=== PATIENT | female | born 1990 ===

== ENCOUNTER 2019-08-26 20:47 | Emergency (ER) | payer SELFPAY ==
[2019-08-26] MEDS ORDERED: diphenhydrAMINE 50 MG Cap PO ONE (21:04)
[2019-08-26] MEDS ORDERED: methylPREDNISolone Sodium Succinate 125 MG/2 ML SDV IM ONE (21:04)
[2019-08-26] MEDS ORDERED: Loratadine/Pseudoephedrine 5-120 MG Tab.ER PO STA (21:05)
[2019-08-26] MEDS ORDERED: Montelukast 10 MG Tab PO ONE (21:09)
--- NOTE | 2019-08-26 21:33 | EDM.PDOC ---
ED HPI GENERAL MEDICAL PROBLEM - General Chief Complaint: General Stated Complaint: ALLERGIC REACTION Time Seen by Provider: 08/26/19 20:55 Source of Information: Reports: Patient History Limitations: Reports: No Limitations - History of Present Illness INITIAL COMMENTS - FREE TEXT/NARRATIVE: HISTORY AND PHYSICAL: History of present illness: Patient is a 28-year-old female who presents to the emergency room with complaints of allergy symptoms. [place] and has noticed allergy symptoms when she goes outside. Today symptoms were worse than usual. Typically she will have a dry scratchy throat, runny nose, sinus congestion/pressure, watery and irritated eyes. She has been trying multiple modalities at home (benadryl, allergy meds, Tylenol, eye drops) without much relief. Patient denies any fever, chills, headache, change in vision, syncope or near syncope. Denies any chest pain, back pain, wheezing, shortness of breath or cough. Denies any abdominal pain, nausea, vomiting, diarrhea, constipation or dysuria. Denies any chance of . Has not noted any blood in urine or stool. Patient has been eating and drinking appropriately. Review of systems: As per history of present illness and below otherwise all systems reviewed and negative. Past medical history: As per history of present illness and as reviewed below otherwise noncontributory. Surgical history: As per history of present illness and as reviewed below otherwise noncontributory. Social history: See social history for further information Family history: As per history of present illness and as reviewed below otherwise noncontributory. Physical exam: General: Well-developed and well-nourished 28-year-old female. Alert and oriented. Nontoxic-appearing and in no acute distress. HEENT: Atraumatic, normocephalic, pupils equal and reactive bilaterally, negative for conjunctival pallor or scleral icterus, bilateral scleral injection and watery discharge, mucous membranes moist, TMs normal bilaterally, throat clear, neck supple, nontender, trachea midline. No drooling or trismus noted. No meningeal signs. No hot potato voice noted. Lungs: Clear to auscultation, breath sounds equal bilaterally, chest nontender. Heart: S1S2, regular rate and rhythm without overt murmur Abdomen: Soft, nondistended, nontender. Negative for masses or hepatosp lenomegaly. Negative for costovertebral tenderness. Skin: Intact, warm, dry. No lesions or rashes noted. Extremities: Atraumatic, moves all extremities per self without difficulty or deficits, negative for cords or calf pain. Neurovascular unremarkable. Neuro: Awake, alert, oriented. Cranial nerves II through XII unremarkable. Cerebellum unremarkable. Motor and sensory unremarkable throughout. Exam nonfocal. Notes: Took Benadryl prior to arrival. We discussed signs and symptoms that would prompt her to return to the emergency room. I would like her to establish care with a primary care provider here for reevaluation in the next week. Supportive care measures were reviewed and discussed. Voices understanding and is agreeable to plan of care. Denies any further questions or concerns at this time. Diagnostics: None Therapeutics: Solu-Medrol, Singulair Prescription: [place], Singulair Impression: Seasonal allergies Conjunctivitis, allergy Plan: 1. Please take the Singulair as directed, 1 tab every night before bed. Further refills need to be provided by a primary care provider. 2. [place] eye drop as directed - or ANY antihistamine eyedrop keenly during allergy season. You can continue taking Benadryl, they do have the non-drowsy formula, take routinely as needed. 3. I would like you to follow-up with her primary care provider, not only for Singulair refill for reevaluation of your symptoms. 4. Return to the emergency room as needed and as discussed. Definitive disposition and diagnosis as appropriate pending reevaluation and review of above. Duration: Week(s): no pain Pain Score (Numeric/FACES): 0 - Related Data Allergies Allergy/AdvReac Type Severity Reaction Status Date / Time acetaminophen [From [place]] Allergy Anxiety Verified 08/26/19 20:54 hydrocodone [From [place]] Allergy Anxiety Verified 08/26/19 20:54 Home Meds: Home Meds . 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 ED EXAM, GENERAL - Physical Exam Exam: See Below (See dictation) Course - Vital Signs Last Recorded V/S: Last Vital Signs Temp 96.7 F L 08/26/19 20:56 Pulse 97 08/26/19 20:56 Resp 18 08/26/19 20:56 BP 136/95 H 08/26/19 20:56 Pulse Ox 96 08/26/19 20:56 - Orders/Labs/Meds Meds: Medications Discontinued Medications Generic Name Dose Route Start Last Admin Trade Name Hailee PRN Reason Stop Dose Admin Diphenhydramine HCl 50 mg 08/26/19 21:04 Benadryl PO 08/26/19 21:05 ONETIME ONE Loratadine/Pseudoephedrine Sulfate 1 tab 08/26/19 21:05 Claritin-D 12 Hour PO 08/26/19 21:06 NOW STA Methylprednisolone Sodium Succinate 125 mg 08/26/19 21:04 08/26/19 21:22 Solu-Medrol IM 08/26/19 21:05 125 mg ONETIME ONE Administration Montelukast Sodium 10 mg 08/26/19 21:09 08/26/19 21:39 Singulair PO 08/26/19 21:10 10 mg ONETIME ONE Administration Departure - Departure Time of Disposition: 21:33 Disposition: Home, Self-Care 01 Clinical Impression: Seasonal allergic conjunctivitis, Seasonal allergies - Discharge Information Instructions: Allergic Conjunctivitis, Adult, [id number]-Typy Referrals: PCP,None [Primary Care Provider] - Forms: ED Department Discharge Additional Instructions: The following information is given to patients seen in the emergency department who are being discharged to home. This information is to outline your options for follow-up care. We provide all patients seen in our emergency department with a follow-up referral. The need for follow-up, as well as the timing and circumstances, are variable depending upon the specifics of your emergency department visit. If you don't have a primary care physician on staff, we will provide you with a referral. We always advise you to contact your personal physician following an emergency department visit to inform them of the circumstance of the visit and for follow-up with them and/or the need for any referrals to a consulting specialist. The emergency department will also refer you to a specialist when appropriate. This referral assures that you have the opportunity for follow-up care with a specialist. All of these measure are taken in an effort to provide you with optimal care, which includes your follow-up. Under all circumstances we always encourage you to contact your private physician who remains a resource for coordinating your care. When calling for follow-up care, please make the office aware that this follow-up is from your recent emergency room visit. If for any reason you are refused follow-up, please contact the [facility] Emergency Department at and asked to speak to the emergency department charge nurse. [facility] [address] [place] [address] [place] [address] 1. Please take the Singulair as directed, 1 tab every night before bed. Further refills need to be provided by a primary care provider. 2. [place] eye drop as directed - or ANY antihistamine eyedrop keenly during allergy season. You can continue taking Benadryl, they do have the non-drowsy formula, take routinely as needed. 3. I would like you to follow-up with her primary care provider, not only for Singulair refill for reevaluation of your symptoms. 4. Return to the emergency room as needed and as discussed. Sepsis Event Note (ED) - Evaluation Sepsis Screening Result: No Definite Risk - Focused Exam Vital Signs: Vital Signs Temp Pulse Resp BP Pulse Ox 08/26/19 20:56 96.7 F L 97 18 136/95 H 96
== END 2019-08-26 21:53 | disposition home or self-care (01) ==
LOC: MW.ED 20:47
DX: J30.2 Other seasonal allergic rhinitis (principal); H10.13 Acute atopic conjunctivitis, bilateral; Z88.6 Allergy status to analgesic agent; Z88.5 Allergy status to narcotic agent
CPT/HCPCS: 96372; 99283; A9270; J2930; 99282

== ENCOUNTER 2020-08-16 19:02 | Observation (INO) | payer BC | END 2020-08-16 20:00 | disposition home or self-care (01) | LOC: MW.OBCHECK 19:02 → MW.OB 19:06 | PROVIDERS: ADMIT Obstetrics & Gynecology Obstetrics; ATTEND Obstetrics & Gynecology Obstetrics | DX: O36.8390 Maternal care for abnormalities of the fetal heart rate or rhythm, unspecified trimester, not applicable or unspecified (principal) | CPT/HCPCS: 59025; 81003; G0378 ==

== ENCOUNTER 2020-08-30 00:13 | Inpatient (IN) | payer BC ==
[2020-08-30] MEDS ORDERED: Misoprostol 200 MCG Tab PO PRN (00:15)
[2020-08-30] MEDS ORDERED: Sodium Chloride 0.9% 10 ML SDV IV PRN (00:15)
[2020-08-30] MEDS ORDERED: Butorphanol 1 MG/ML SDV IVPUSH PRN (00:15)
[2020-08-30] MEDS ORDERED: Oxytocin/0.9 % Sodium Chloride 30 UNIT/500 ML BAG IV SCH ×2 (00:15→00:30)
[2020-08-30] MEDS ORDERED: Lidocaine 1% 50 ML MDV INJECT PRN (00:15)
[2020-08-30] MEDS ORDERED: Sodium Chloride 0.9% 2.5 ML Syringe FLUSH PRN (00:15)
[2020-08-30] MEDS ORDERED: Sodium Chloride 0.9% 10 ML Syringe FLUSH PRN (00:15)
[2020-08-30] MEDS ORDERED: Tranexamic Acid 1,000 MG in Sodium Chloride 0.9% 100 ML IV PRN (00:15)
[2020-08-30] MEDS ORDERED: Water For Irrigation,Sterile 1,000 ML Container IRR PRN (00:15)
[2020-08-30] MEDS ORDERED: Carboprost Tromethamine 250 MCG/1 ML Amp IM PRN (00:15)
[2020-08-30] MEDS ORDERED: Methylergonovine 0.2 MG/1 ML Amp IM PRN (00:15)
[2020-08-30] MEDS ORDERED: Nalbuphine 10 MG/1 ML Vial IVPUSH PRN (00:15)
[2020-08-30] MEDS ORDERED: Terbutaline 1 MG/ML SDV SUBCUT PRN (00:22)
[2020-08-30] MEDS ORDERED: Misoprostol 25 MCG (1/4 of 100 MCG) Tab VAG PRN (00:22)
[2020-08-30] MEDS ORDERED: Promethazine 25 MG/ML SDV IM PRN (00:30)
[2020-08-30] MEDS ORDERED: Sodium Chloride 0.9% 100 ML ONE (01:21)
[2020-08-30] MEDS ORDERED: Ampicillin 2 GM Vial ONE (01:21)
[2020-08-30] MEDS: Lactated Ringers 1,000 ML IV SCH ×3 (01:37→12:31)
[2020-08-30] MEDS: Misoprostol 25 MCG (1/4 of 100 MCG) Tab VAG PRN ×3 (01:49→10:20)
[2020-08-30] MEDS: Misoprostol 25 MCG (1/4 of 100 MCG) Tab PO SCH ×4 (01:49→19:25)
[2020-08-30] MEDS ORDERED: Ampicillin 2 GM in Sodium Chloride 0.9% 100 ML IV ONE (02:00)
[2020-08-30] MEDS: Ampicillin 1 GM in Sodium Chloride 0.9% 50 ML IV SCH ×3 (05:54→13:50)
[2020-08-30] MEDS ORDERED: Bupivacaine 0.25% 10 ML SDV ONE (11:40)
[2020-08-30] MEDS ORDERED: Ropivacaine HCl/PF 200 ML ONE (11:40)
--- NOTE | 2020-08-30 12:15 | PCM.PREANE ---
Preanesthetic Assessment - Anesthesia/Transfusion/Family Hx Anesthesia History: Prior Anesthesia Without Reaction Family History of Anesthesia Reaction: No Transfusion History: No Prior Transfusion(s) - Review of Systems General: No Symptoms Pulmonary: No Symptoms Cardiovascular: No Symptoms Gastrointestinal: No Symptoms Neurological: No Symptoms Other: Reports: None - Physical Assessment NPO Status Date: 08/30/20 NPO Status Time: 00:00 Height: 5 ft 4 in Weight: 208 lb ASA Class: 2 Mental Status: Alert & Oriented x3 Airway Class: Mallampati = 2 Dentition: Reports: Normal Dentition ROM/Head Extension: Full Lungs: Clear to Auscultation, Normal Respiratory Effort Cardiovascular: Regular Rate, Regular Rhythm - Lab Values: Laboratory Last Values WBC 9.66 K/uL (4.0-11.0) 08/30/20 00:49 RBC 4.83 M/uL (4.30-5.90) 08/30/20 00:49 Hgb 13.6 g/dL (12.0-16.0) 08/30/20 00:49 Hct 40.8 % (36.0-46.0) 08/30/20 00:49 MCV 84.5 fL (80.0-98.0) 06 00:49 MCH 28.2 pg (27.0-32.0) 08/30/20 00:49 MCHC 33.3 g/dL (31.0-37.0) 06 00:49 RDW Std Deviation 43.3 fl (28.0-62.0) 08/30/20 00:49 RDW Coeff of Jackeline 14 % (11.0-15.0) 08/30/20 00:49 Plt Count 245 K/uL (150-400) 08/30/20 00:49 MPV 10.30 fL (7.40-12.00) 08/30/20 00:49 SARS-CoV-2 RNA (NANCI) NEGATIVE (NEGATIVE) 08/30/20 00:53 Blood Type B NEGATIVE 08/30/20 00:49 Antibody Screen NEGATIVE 08/30/20 00:49 - Allergies Allergies/Adverse Reactions: Allergies Allergy/AdvReac Type Severity Reaction Status Date / Time acetaminophen [From [place]] Allergy Anxiety Verified 08/30/20 00:15 hydrocodone [From [place]] Allergy Anxiety Verified 08/30/20 00:15 - Blood Blood Available: Yes Product(s) Available: PRBC - Anesthesia Plan Pre-Op Medication Ordered: None - Acknowledgements Anesthesia Type Planned: Epidural Pt an Appropriate Candidate for the Planned Anesthesia: Yes Alternatives and Risks of Anesthesia Discussed w Pt/Guardian: Yes Pt/Guardian Understands and Agrees with Anesthesia Plan: Yes PreAnesthesia Questionnaire - Past Health History Medical/Surgical History: Denies Medical/Surgical History HEENT History: Reports: None Cardiovascular History: Reports: None Respiratory History: Reports: None Gastrointestinal History: Reports: None Genitourinary History: Reports: None 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 [No Known Home Meds] 08/26/19 [History] - CURRENT (IN HOUSE) MEDS Current Meds: Current Medications Butorphanol Tartrate (Butorphanol 1 Mg/Ml Sdv) 1 mg IVPUSH Q1H PRN PRN Reason: Pain (severe 7-10) Carboprost Tromethamine (Carboprost Tromethamine 250 Mcg/1 Ml Amp) 250 mcg IM ASDIRECTED PRN PRN Reason: Post Hemorrhage Oxytocin/Sodium Chloride (Oxytocin 30 Unit/500 Ml-Ns) 30 unit in 500 mls @ 500 mls/hr IV TITRATE STEFAN Tranexamic Acid 1,000 mg/ (Sodium Chloride) 110 mls @ 660 mls/hr IV ONETIME PRN PRN Reason: Bleeding Lactated Ringer's (Ringers, Lactated) 1,000 mls @ 150 mls/hr IV ASDIRECTED STEFAN Last Infusion: 08/30/20 11:30 Dose: 999 mls/hr Documented by: Oxytocin/Sodium Chloride (Oxytocin 30 Unit/500 Ml-Ns) 30 unit in 500 mls @ 2 mls/hr IV TITRATE STEFAN; Protocol Ampicillin Sodium 1 gm/ Sodium (Chloride) 50 mls @ 100 mls/hr IV Q4H STEFAN Last Admin: 08/30/20 10:18 Dose: 100 mls/hr Documented by: Lidocaine HCl (Lidocaine 1% 50 Ml Mdv) 50 ml INJECT ONETIME PRN PRN Reason: Laceration repair Methylergonovine Maleate (Methylergonovine 0.2 Mg/1 Ml Amp) 0.2 mg IM ASDIRECTED PRN PRN Reason: Post Hemorrhage Misoprostol (Misoprostol 200 Mcg Tab) 200 mcg PO ONETIME PRN PRN Reason: Post Hemorrhage Misoprostol (Misoprostol 25 Mcg (1/4 Of 100 Mcg) Tab) 25 mcg VAG ONETIME PRN PRN Reason: Cervical Ripening Misoprostol (Misoprostol 25 Mcg (1/4 Of 100 Mcg) Tab) 25 mcg VAG Q4H PRN PRN Reason: Cervical Ripening Last Admin: 08/30/20 10:20 Dose: 25 mcg Documented by: Misoprostol (Misoprostol 25 Mcg (1/4 Of 100 Mcg) Tab) 25 mcg PO Q4H STEFAN Last Admin: 08/30/20 10:19 Dose: 25 mcg Documented by: Nalbuphine HCl (Nalbuphine 10 Mg/1 Ml Vial) 10 mg IVPUSH Q1H PRN PRN Reason: Pain (severe 7-10) Promethazine HCl (Promethazine 25 Mg/Ml Sdv) 25 mg IM Q1H PRN PRN Reason: Pain (moderate 4-6) Sodium Chloride (Sodium Chloride 0.9% 10 Ml Syringe) 10 ml FLUSH ASDIRECTED PRN PRN Reason: Keep Vein Open Sodium Chloride (Sodium Chloride 0.9% 2.5 Ml Syringe) 2.5 ml FLUSH ASDIRECTED PRN PRN Reason: Keep Vein Open Sodium Chloride (Sodium Chloride 0.9% 10 Ml Sdv) 10 ml IV ASDIRECTED PRN PRN Reason: IV Use Sterile Water (Water For Irrigation,Sterile 1,000 Ml Container) 1,000 ml IRR ASDIRECTED PRN PRN Reason: delivery Terbutaline Sulfate (Terbutaline 1 Mg/Ml Sdv) 0.25 mg SUBCUT ASDIRECTED PRN PRN Reason: Tacysystole Discontinued Medications Ampicillin Sodium (Ampicillin 2 Gm Vial) Confirm Administered Dose 2 gm .ROUTE .STK-MED ONE Stop: 08/30/20 01:22 Last Admin: 08/30/20 01:39 Dose: 2 gm Documented by: Bupivacaine HCl (Bupivacaine 0.25% 10 Ml Sdv) Confirm Administered Dose 10 ml .ROUTE .STK-MED ONE Stop: 08/30/20 11:41 Ampicillin Sodium 2 gm/ Sodium (Chloride) 100 mls @ 200 mls/hr IV ONETIME ONE Stop: 08/30/20 02:29 Last Admin: 08/30/20 02:13 Dose: Not Given Documented by: Sodium Chloride (Normal Saline) Confirm Administered Dose 100 mls @ as directed .ROUTE .STK-MED ONE Stop: 08/30/20 01:22 Last Admin: 08/30/20 01:39 Dose: 200 mls/hr Documented by: Ropivacaine (Naropin 0.2%) Confirm Administered Dose 200 mls @ as directed .ROUTE .ST-MED ONE Stop: 08/30/20 11:41 - Pre-Procedure Checklist Attending Provider Aware: Yes Chart Reviewed: Yes Consent Signed: Yes Labs Reviewed: Yes VS/FHR Reviewed: Yes Patient Identification Confirmation Method: Reports: Verbal Patient Pt an Appropriate Candidate for the Planned Anesthesia: Yes Alternatives and Risks of Anesthesia Discussed w Pt/Guardian: Yes - Procedure Procedure Start Date: 08/30/20 Procedure Start Time: 11:[address]: Reports: Blood Pressure, Heart Rate, SPO2 Functional IV: Yes Safety Measures: Reports: Patient Identified, Procedure Verified, Site Verified, Procedure Time Out Patient Position: Reports: Sitting Prep: Reports: Betadine x3 Local Anesthetic: Reports: Intradermal Wheal w Lidocaine 1% Regional Placement Level: Reports: L3-4 Needle: Reports: 17 g Touhy Approach: Reports: Midline Technique: Reports: FRED Plastic Syringe Parasthesia: Reports: None Fluid Obtained: Reports: None Test Dose Medication: Reports: Lidocaine 1.5% w Epinephrine 1:200,000 Test Dose Response: Reports: Negative Loading Dose Time: 11:50 Loading Dose Medication: bupivicaine 0.25% 10 cc Loading Dose Patient Position: sitting Continuous Infusion Start Time: 11:55 Continuous Infusion Medication: ropivicaine 0.2% Continuous Infusion Rate: 16 Continuous Infusion PCS Bolus Option: 4 Continuous Infusion Lockout Dose (cc/hr): 15 Patient Position Post Placement: Reports: Supline/MOISE VS and FHR Monitored in Unit Post Placement: Yes Procedure End Date: 08/30/20 Procedure End Time: 12:41
--- NOTE | 2020-08-30 12:47 | PCM.LDHP ---
L&D History of Present Illness - General Date of Service: 08/30/20 Admit Problem/Dx: Patient Status Order with Admit Dx/Problem 08/30/20 00:15 Patient Status [ADT] Routine Admission Diagnosis/Problem Admission Diagnosis/Problem Source of Information: Patient History Limitations: Reports: No Limitations - History of Present Illness Introduction:: 29yo @ 39w5d GA here for elective IOL. Rh negative (received rhogam at 28wGA) and GBS positive, otherwise care uncomplicated. Denies VB, LOF or Ctx Reports good FM. - Related Data Allergies/Adverse Reactions: Allergies Allergy/AdvReac Type Severity Reaction Status Date / Time acetaminophen [From [place]] Allergy Anxiety Verified 08/30/20 00:15 hydrocodone [From [place]] Allergy Anxiety Verified 08/30/20 00:15 Home Medications: Home Meds . [No Known Home Meds] 08/26/19 [History] Past Medical History - Past Health History Medical/Surgical History: Denies Medical/Surgical History HEENT History: Reports: None Cardiovascular History: Reports: None Respiratory History: Reports: None Gastrointestinal History: Reports: None Genitourinary History: Reports: None LOCOMOTIVE FIRER History: Reports: None Neurological History: Reports: None Psychiatric History: Reports: None Endocrine/Metabolic History: Reports: None Dermatologic History: Reports: None Social & Family History - Family History Family Medical History: No Pertinent Family History - Tobacco Use Tobacco Use Status *Q: Never Tobacco User Second Hand Smoke Exposure: No - Caffeine Use Caffeine Use: Reports: Coffee, Soda - Recreational Drug Use Recreational Drug Use: No H&P Review of Systems - Review of Systems: Review Of Systems: See Below General: Reports: No Symptoms HEENT: Reports: No Symptoms Pulmonary: Reports: No Symptoms Cardiovascular: Reports: No Symptoms Gastrointestinal: Reports: No Symptoms Genitourinary: Reports: No Symptoms Musculoskeletal: Reports: No Symptoms Skin: Reports: No Symptoms Psychiatric: Reports: No Symptoms Neurological: Reports: No Symptoms Hematologic/Lymphatic: Reports: No Symptoms Immunologic: Reports: No Symptoms L&D Exam - Exam Exam: See Below - Vital Signs Weight: 94.347 kg - OB Specific Contraction Intensity: Mild Movement: Active Heart Tones: Present Presentation: Vertex Estimated Weight: 8 - Costa Score Costa Score Cervix Position: Posterior Costa Score Consistency: Firm Costa Score Effacement: 0-30% Costa Score Dilation: 1-2 cm Costa Score Infant's Station: -3 Costa Score Total: 1 - Exam General: Alert, Oriented Lungs: Normal Respiratory Effort Cardiovascular: Regular Rate GI/Abdominal Exam: Soft Extremities: Normal Inspection Psychiatric: Alert, Normal Affect, Normal Mood - Patient Data Lab Results Last 24 hrs: Laboratory Results - last 24 hr 08/30/20 08/30/20 08/30/20 Range/Units 00:49 00:49 00:53 WBC 9.66 (4.0-11.0) K/uL RBC 4.83 (4.30-5.90) M/uL Hgb 13.6 (12.0-16.0) g/dL Hct 40.8 (36.0-46.0) % MCV 84.5 (80.0-98.0) fL MCH 28.2 (27.0-32.0) pg MCHC 33.3 (31.0-37.0) g/dL RDW Std Deviation 43.3 (28.0-62.0) fl RDW Coeff of Jackeline 14 (11.0-15.0) % Plt Count 245 (150-400) K/uL MPV 10.30 (7.40-12.00) fL SARS-CoV-2 RNA (NANCI) NEGATIVE (NEGATIVE) Blood Type B NEGATIVE Antibody Screen NEGATIVE Result Diagrams: 08/30/20 00:49 - Problem List (1) Term SNOMED Code(s): 49254476 ICD Code: Z34.90 - ENCNTR FOR SUPRVSN OF NORMAL , UNSP, UNSP TRIMESTER Status: Acute Current Visit: Yes (2) Encounter for induction of labor SNOMED Code(s): 892336176 ICD Code: Z34.90 - ENCNTR FOR SUPRVSN OF NORMAL , UNSP, UNSP TRIMESTER Status: Acute Current Visit: Yes Problem List Initiated/Reviewed/Updated: Yes Orders Last 24hrs: Active Orders 24 hr Category Date Time Status Patient Status [ADT] Routine ADT 08/30/20 00:15 Active May Shower [RC] ASDIRECTED Care 08/30/20 00:19 Active Notify Provider [RC] PRN Care 08/30/20 00:19 Active Notify Provider [RC] PRN Care 08/30/20 00:22 Active Notify Provider [RC] PRN Care 08/30/20 00:22 Active Notify Provider [RC] STAT Care 08/30/20 00:22 Active Up ad [place] [RC] ASDIRECTED Care 08/30/20 00:19 Active Vital Signs [RC] PER UNIT ROUTINE Care 08/30/20 00:19 Active Regular Diet [DIET] Diet 08/30/20 Breakfast Active RPR (SYPHILIS SERO) W/ RFLX [REF] Routine Lab 08/30/20 00:49 Received Ampicillin 1 gm Med 08/30/20 06:00 Active Sodium Chloride 0.9% [Normal Saline] 50 ml IV Q4H Butorphanol [Stadol] Med 08/30/20 00:15 Active 1 mg IVPUSH Q1H PRN Carboprost Tromethamine [Hemabate DS] Med 08/30/20 00:15 Active 250 mcg IM ASDIRECTED PRN Lactated Ringers [Ringers, Lactated] 1,000 ml Med 08/30/20 00:15 Active IV ASDIRECTED Lidocaine 1% [Xylocaine 1%] Med 08/30/20 00:15 Active 50 ml INJECT ONETIME PRN Methylergonovine [Methergine] Med 08/30/20 00:15 Active 0.2 mg IM ASDIRECTED PRN Nalbuphine [Nubain] Med 08/30/20 00:15 Active 10 mg IVPUSH Q1H PRN Oxytocin/0.9 % Sodium Chloride [Oxytocin 30 Unit/500 ML Med 08/30/20 00:15 Active -NS] 30 unit in 500 ml IV TITRATE Oxytocin/0.9 % Sodium Chloride [Oxytocin 30 Unit/500 ML Med 08/30/20 00:30 Active -NS] 30 unit in 500 ml IV TITRATE Promethazine [Phenergan] Med 08/30/20 00:30 Active 25 mg IM Q1H PRN Sodium Chloride 0.9% [Normal Saline] Med 08/30/20 00:15 Active 10 ml IV ASDIRECTED PRN Sodium Chloride 0.9% [Saline Flush] Med 08/30/20 00:15 Active 10 ml FLUSH ASDIRECTED PRN Sodium Chloride 0.9% [Saline Flush] Med 08/30/20 00:15 Active 2.5 ml FLUSH ASDIRECTED PRN Terbutaline [Brethine] Med 08/30/20 00:22 Active 0.25 mg SUBCUT ASDIRECTED PRN Tranexamic Acid [Cyklokapron] 1,000 mg Med 08/30/20 00:15 Active Sodium Chloride 0.9% [Normal Saline] 100 ml IV ONETIME Water For Irrigation,Sterile [Sterile Water for Med 08/30/20 00:15 Active Irrigation] 1,000 ml IRR ASDIRECTED PRN miSOPROStoL [Cytotec] Med 08/30/20 00:15 Active 200 mcg PO ONETIME PRN miSOPROStoL [Cytotec] Med 08/30/20 00:30 Active 25 mcg PO Q4H miSOPROStoL [Cytotec] Med 08/30/20 00:22 Active 25 mcg VAG ONETIME PRN miSOPROStoL [Cytotec] Med 08/30/20 02:00 Active 25 mcg VAG Q4H PRN Scalp Electrode [WOMSER] Per Unit Routine Oth 08/30/20 00:19 Ordered Medication Administration Instruction [OM.PC] Q3H Oth 08/30/20 00:30 Ordered Peripheral IV Insertion Adult [OM.PC] Routine Oth 08/30/20 00:19 Ordered Resuscitation Status Routine Resus Stat 08/30/20 00:15 Ordered Medication Orders Butorphanol Tartrate (Butorphanol 1 Mg/Ml Sdv) 1 mg IVPUSH Q1H PRN PRN Reason: Pain (severe 7-10) Carboprost Tromethamine (Carboprost Tromethamine 250 Mcg/1 Ml Amp) 250 mcg IM ASDIRECTED PRN PRN Reason: Post Hemorrhage Oxytocin/Sodium Chloride (Oxytocin 30 Unit/500 Ml-Ns) 30 unit in 500 mls @ 500 mls/hr IV TITRATE STEFAN Tranexamic Acid 1,000 mg/ (Sodium Chloride) 110 mls @ 660 mls/hr IV ONETIME PRN PRN Reason: Bleeding Lactated Ringer's (Ringers, Lactated) 1,000 mls @ 150 mls/hr IV ASDIRECTED STEFAN Last Infusion: 08/30/20 11:30 Dose: 999 mls/hr Documented by: Admin: 08/30/20 10:19 Dose: 150 mls/hr Documented by: Infusion: 08/30/20 08:18 Dose: 150 mls/hr Documented by: Admin: 08/30/20 01:37 Dose: 150 mls/hr Documented by: ADAMARIS Oxytocin/Sodium Chloride (Oxytocin 30 Unit/500 Ml-Ns) 30 unit in 500 mls @ 2 mls/hr IV TITRATE STEFAN; Protocol Ampicillin Sodium 1 gm/ Sodium (Chloride) 50 mls @ 100 mls/hr IV Q4H [facility] Last Admin: 08/30/20 10:18 Dose: 100 mls/hr Documented by: Infusion: 08/30/20 06:24 Dose: 100 mls/hr Documented by: Admin: 08/30/20 05:54 Dose: 100 mls/hr Documented by: ADAMARIS Lidocaine HCl (Lidocaine 1% 50 Ml Mdv) 50 ml INJECT ONETIME PRN PRN Reason: Laceration repair Methylergonovine Maleate (Methylergonovine 0.2 Mg/1 Ml Amp) 0.2 mg IM ASDIRECTED PRN PRN Reason: Post Hemorrhage Misoprostol (Misoprostol 200 Mcg Tab) 200 mcg PO ONETIME PRN PRN Reason: Post Hemorrhage Misoprostol (Misoprostol 25 Mcg (1/4 Of 100 Mcg) Tab) 25 mcg VAG ONETIME PRN PRN Reason: Cervical Ripening Misoprostol (Misoprostol 25 Mcg (1/4 Of 100 Mcg) Tab) 25 mcg VAG Q4H PRN PRN Reason: Cervical Ripening Last Admin: 08/30/20 10:20 Dose: 25 mcg Documented by: Admin: 08/30/20 05:46 Dose: 25 mcg Documented by: Admin: 08/30/20 01:49 Dose: 25 mcg Documented by: ADAMARIS Misoprostol (Misoprostol 25 Mcg (1/4 Of 100 Mcg) Tab) 25 mcg PO Q4H [facility] Last Admin: 08/30/20 10:19 Dose: 25 mcg Documented by: Admin: 08/30/20 05:46 Dose: 25 mcg Documented by: Admin: 08/30/20 01:49 Dose: 25 mcg Documented by: ADAMARIS Nalbuphine HCl (Nalbuphine 10 Mg/1 Ml Vial) 10 mg IVPUSH Q1H PRN PRN Reason: Pain (severe 7-10) Promethazine HCl (Promethazine 25 Mg/Ml Sdv) 25 mg IM Q1H PRN PRN Reason: Pain (moderate 4-6) Sodium Chloride (Sodium Chloride 0.9% 10 Ml Syringe) 10 ml FLUSH ASDIRECTED PRN PRN Reason: Keep Vein Open Sodium Chloride (Sodium Chloride 0.9% 2.5 Ml Syringe) 2.5 ml FLUSH ASDIRECTED PRN PRN Reason: Keep Vein Open Sodium Chloride (Sodium Chloride 0.9% 10 Ml Sdv) 10 ml IV ASDIRECTED PRN PRN Reason: IV Use Sterile Water (Water For Irrigation,Sterile 1,000 Ml Container) 1,000 ml IRR ASDIRECTED PRN PRN Reason: delivery Terbutaline Sulfate (Terbutaline 1 Mg/Ml Sdv) 0.25 mg SUBCUT ASDIRECTED PRN PRN Reason: Tacysystole Assessment/Plan Comment:: 29yo @ 39w5d GA here for elective IOL. Reactive strip, costa score of 1. Discussed procedure including off label use of cytotec, as well as risk and benefits. Patient express understanding and agreeable for the induction. Consent signed. Ampicillin for GBS prophilaxis. Epidural PRN Rhogam eval at delivery
[2020-08-30] MEDS ORDERED: Ondansetron 4 MG/2 ML SDV ONE (12:51)
[2020-08-30] MEDS ORDERED: Ibuprofen 400 MG Tab PO PRN (14:50)
[2020-08-30] MEDS ORDERED: Lanolin 100% Cream 7 GM Tube TOP PRN (14:50)
[2020-08-30] MEDS ORDERED: Acetaminophen 500 MG Tab PO PRN (14:50)
[2020-08-30] MEDS ORDERED: Bisacodyl 10 MG Supp RECTAL PRN (14:50)
[2020-08-30] MEDS ORDERED: Witch Hazel Medicated Pads 40/Jar TOP PRN (14:50)
[2020-08-30] MEDS ORDERED: Benzocaine/Menthol 20%-0.5% Spray 78 GM Cannister TOP PRN (14:50)
--- NOTE | 2020-08-30 15:04 | PCM.DEL ---
L & D Note - General Info Date of Service: 08/30/20 Mother's Due Date: 09/03/20 - Delivery Note Labor: Augmented by Oxytocin Cervical Ripening Method: Misoprostil Delivery Outcome: Livebirth Infant Delivery Method: Spontaneous Vaginal Delivery-Single Presentation: Vertex Nuchal Cord: None Anesthesia Type: Epidural Laceration: None Placenta: Intact, Spontaneous Cord: 3 Vessels Estimated Blood Loss: 300 Resuscitation Needed: Yes [place]: Suctioned, Stimulated Score 1 min: 3 Score 5 min: 8 Delivery Comments (Free Text/Narrative):: 29yo G4 now P3013 @ 39w 5d GA after uncomplicated elective IOL. course complicated by Rh negative and GBS pos, appropriately treated during labor (s/p 4 doses of antibiotics). of a live female, 7lb 13oz and Apgars 3/8. Delivered DANNA, no nuchal cord, Presence of meconium stained fluid. SROM right before the delivery. Vertex and body delivered without difficulty. Cord clamped and cut. Placenta delivered spontaneously, intact. Fundus firm, minimal bleeding. Placenta appears intact with 3 vessel cord. Perineum and vagina inspected, no lacerations noted. EBL 300cc. Hemostatic. Patient tolerated procedure well. Labor course was unremarkable, Patient reached full dilatation about 4hrs after the 3rd round of cytotec. Low dose pitocin was started during pushing since contractions were 3-7mns apart. Delivery complicated by meconium stained fluid noted at the time of SROM, while patient was pushing, about 2mns before delivery. RT and card feeder were called in. Baby appeared to be stunned at delivery, not spontaneously crying with usual stimulation and drying, which lasted ~7s. Cord was clamped, cut and baby was handed to the staff for rescucitation. Induction Criteria - Gibson Score Gibson Score Dilation: 1-2 cm Gibson Score Effacement: 0-30% Gibson Score 's Station: -3 Gibson Score Consistency: Firm Gibson Score Cervix Position: Posterior Gibson Score Total: 1 Gibson Score Presenting Part: Reports: Cephalic - Induction Gestational Age >/= 39 wks: Yes Estimated Pelvis: Reports: Adequate Reassuring Monitoring Strip: Yes Absence of Tachy Systole: Yes - Augmentation Estimated Pelvis: Reports: Adequate Weight Estimated:: Reports: AGA Reassuring Monitoring Strip: Yes Absence of Tachy Systole: Yes - General Info Date of Service: 08/30/20 Admission Dx/Problem (Free Text): Patient Status Order with Admit Dx/Problem 08/30/20 00:15 Patient Status [ADT] Routine Admission Diagnosis/Problem Admission Diagnosis/Problem Subjective Update: S/P uncomplicated normal vaginal delivery after elective IOL. Mom and baby are doing well. Functional Status: Reports: Pain Controlled - Review of Systems General: Reports: No Symptoms HEENT: Reports: No Symptoms Pulmonary: Reports: No Symptoms Cardiovascular: Reports: No Symptoms Gastrointestinal: Reports: No Symptoms Genitourinary: Reports: No Symptoms Musculoskeletal: Reports: No Symptoms Skin: Reports: No Symptoms Neurological: Reports: No Symptoms Psychiatric: Reports: No Symptoms - Patient Data Weight - Most Recent: 94.347 kg Lab Results Last 24 Hours: Laboratory Results - last 24 hr 08/30/20 08/30/20 08/30/20 Range/Units 00:49 00:49 00:53 WBC 9.66 (4.0-11.0) K/uL RBC 4.83 (4.30-5.90) M/uL Hgb 13.6 (12.0-16.0) g/dL Hct 40.8 (36.0-46.0) % MCV 84.5 (80.0-98.0) fL MCH 28.2 (27.0-32.0) pg MCHC 33.3 (31.0-37.0) g/dL RDW Std Deviation 43.3 (28.0-62.0) fl RDW Coeff of Jackeline 14 (11.0-15.0) % Plt Count 245 (150-400) K/uL MPV 10.30 (7.40-12.00) fL SARS-CoV-2 RNA (NANCI) NEGATIVE (NEGATIVE) Blood Type B NEGATIVE Antibody Screen NEGATIVE Med Orders - Current: Current Medications Butorphanol Tartrate (Butorphanol 1 Mg/Ml Sdv) 1 mg IVPUSH Q1H PRN PRN Reason: Pain (severe 7-10) Carboprost Tromethamine (Carboprost Tromethamine 250 Mcg/1 Ml Amp) 250 mcg IM ASDIRECTED PRN PRN Reason: Post Hemorrhage Oxytocin/Sodium Chloride (Oxytocin 30 Unit/500 Ml-Ns) 30 unit in 500 mls @ 500 mls/hr IV TITRATE STEFAN Tranexamic Acid 1,000 mg/ (Sodium Chloride) 110 mls @ 660 mls/hr IV ONETIME PRN PRN Reason: Bleeding Lactated Ringer's (Ringers, Lactated) 1,000 mls @ 150 mls/hr IV ASDIRECTED [facility] Last Admin: 08/30/20 12:31 Dose: 150 mls/hr Documented by: Oxytocin/Sodium Chloride (Oxytocin 30 Unit/500 Ml-Ns) 30 unit in 500 mls @ 2 mls/hr IV TITRATE [facility]; Protocol Last Admin: 08/30/20 14:15 Dose: 2 munits/min, 2 mls/hr Documented by: Ampicillin Sodium 1 gm/ Sodium (Chloride) 50 mls @ 100 mls/hr IV Q4H [facility] Last Admin: 08/30/20 13:50 Dose: 100 mls/hr Documented by: Lidocaine HCl (Lidocaine 1% 50 Ml Mdv) 50 ml INJECT ONETIME PRN PRN Reason: Laceration repair Methylergonovine Maleate (Methylergonovine 0.2 Mg/1 Ml Amp) 0.2 mg IM ASDIRECTED PRN PRN Reason: Post Hemorrhage Misoprostol (Misoprostol 200 Mcg Tab) 200 mcg PO ONETIME PRN PRN Reason: Post Hemorrhage Misoprostol (Misoprostol 25 Mcg (1/4 Of 100 Mcg) Tab) 25 mcg VAG ONETIME PRN PRN Reason: Cervical Ripening Misoprostol (Misoprostol 25 Mcg (1/4 Of 100 Mcg) Tab) 25 mcg VAG Q4H PRN PRN Reason: Cervical Ripening Last Admin: 08/30/20 10:20 Dose: 25 mcg Documented by: Misoprostol (Misoprostol 25 Mcg (1/4 Of 100 Mcg) Tab) 25 mcg PO Q4H [facility] Last Admin: 08/30/20 10:19 Dose: 25 mcg Documented by: Nalbuphine HCl (Nalbuphine 10 Mg/1 Ml Vial) 10 mg IVPUSH Q1H PRN PRN Reason: Pain (severe 7-10) Promethazine HCl (Promethazine 25 Mg/Ml Sdv) 25 mg IM Q1H PRN PRN Reason: Pain (moderate 4-6) Sodium Chloride (Sodium Chloride 0.9% 10 Ml Syringe) 10 ml FLUSH ASDIRECTED PRN PRN Reason: Keep Vein Open Sodium Chloride (Sodium Chloride 0.9% 2.5 Ml Syringe) 2.5 ml FLUSH ASDIRECTED PRN PRN Reason: Keep Vein Open Sodium Chloride (Sodium Chloride 0.9% 10 Ml Sdv) 10 ml IV ASDIRECTED PRN PRN Reason: IV Use Sterile Water (Water For Irrigation,Sterile 1,000 Ml Container) 1,000 ml IRR ASDIRECTED PRN PRN Reason: delivery Terbutaline Sulfate (Terbutaline 1 Mg/Ml Sdv) 0.25 mg SUBCUT ASDIRECTED PRN PRN Reason: Tacysystole Discontinued Medications Ampicillin Sodium (Ampicillin 2 Gm Vial) Confirm Administered Dose 2 gm .ROUTE .STK-MED ONE Stop: 08/30/20 01:22 Last Admin: 08/30/20 01:39 Dose: 2 gm Documented by: Bupivacaine HCl (Bupivacaine 0.25% 10 Ml Sdv) Confirm Administered Dose 10 ml .ROUTE .STK-MED ONE Stop: 08/30/20 11:41 Ampicillin Sodium 2 gm/ Sodium (Chloride) 100 mls @ 200 mls/hr IV ONETIME ONE Stop: 08/30/20 02:29 Last Admin: 08/30/20 02:13 Dose: Not Given Documented by: Sodium Chloride (Normal Saline) Confirm Administered Dose 100 mls @ as directed .ROUTE .STK-MED ONE Stop: 08/30/20 01:22 Last Admin: 08/30/20 01:39 Dose: 200 mls/hr Documented by: Ropivacaine (Naropin 0.2%) Confirm Administered Dose 200 mls @ as directed .ROUTE .STK-MED ONE Stop: 08/30/20 11:41 Ondansetron HCl (Ondansetron 4 Mg/2 Ml Sdv) Confirm Administered Dose 4 mg .ROUTE .STK-MED ONE Stop: 08/30/20 12:52 - Exam Urinary Catheter Total Time: 0Days 0Hours General: Alert, Oriented Lungs: Normal Respiratory Effort Cardiovascular: Regular Rate GI/Abdominal Exam: Soft Extremities: Normal Inspection Skin: Warm Psy/Mental Status: Alert, Normal Affect, Normal Mood - Problem List & Annotations (1) Term SNOMED Code(s): 74903419 Code(s): Z34.90 - ENCNTR FOR SUPRVSN OF NORMAL , UNSP, UNSP TRIMESTER Status: Acute Current Visit: Yes (2) Encounter for induction of labor SNOMED Code(s): 552154118 Code(s): Z34.90 - ENCNTR FOR SUPRVSN OF NORMAL , UNSP, UNSP TRIMESTER Status: Acute Current Visit: Yes - Problem List Review Problem List Initiated/Reviewed/Updated: Yes - My Orders Last 24 Hours: My Active Orders 08/30/20 00:15 Butorphanol [Stadol] 1 mg IVPUSH Q1H PRN Carboprost Tromethamine [Hemabate DS] 250 mcg IM ASDIRECTED PRN Lactated Ringers [Ringers, Lactated] 1,000 ml IV ASDIRECTED Lidocaine 1% [Xylocaine 1%] 50 ml INJECT ONETIME PRN Methylergonovine [Methergine] 0.2 mg IM ASDIRECTED PRN Nalbuphine [Nubain] 10 mg IVPUSH Q1H PRN Oxytocin/0.9 % Sodium Chloride [Oxytocin 30 Unit/500 ML-NS] 30 unit in 500 ml IV TITRATE Sodium Chloride 0.9% [Normal Saline] 10 ml IV ASDIRECTED PRN Sodium Chloride 0.9% [Saline Flush] 10 ml FLUSH ASDIRECTED PRN Sodium Chloride 0.9% [Saline Flush] 2.5 ml FLUSH ASDIRECTED PRN Tranexamic Acid [Cyklokapron] 1,000 mg Sodium Chloride 0.9% [Normal Saline] 100 ml IV ONETIME Water For Irrigation,Sterile [Sterile Water for Irrigation] 1,000 ml IRR ASDIRECTED PRN miSOPROStoL [Cytotec] 200 mcg PO ONETIME PRN Resuscitation Status Routine 08/30/20 00:19 May Shower [RC] ASDIRECTED Notify Provider [RC] PRN Up ad [place] [RC] ASDIRECTED Vital Signs [RC] PER UNIT ROUTINE Scalp Electrode [WOMSER] Per Unit Routine Peripheral IV Insertion Adult [OM.PC] Routine 08/30/20 00:22 Notify Provider [RC] PRN Notify Provider [RC] PRN Notify Provider [RC] STAT Terbutaline [Brethine] 0.25 mg SUBCUT ASDIRECTED PRN miSOPROStoL [Cytotec] 25 mcg VAG ONETIME PRN 08/30/20 00:30 Oxytocin/0.9 % Sodium Chloride [Oxytocin 30 Unit/500 ML-NS] 30 unit in 500 ml IV TITRATE Promethazine [Phenergan] 25 mg IM Q1H PRN miSOPROStoL [Cytotec] 25 mcg PO Q4H Medication Administration Instruction [OM.PC] Q3H 08/30/20 00:49 RPR (SYPHILIS SERO) W/ RFLX [REF] Routine 08/30/20 02:00 miSOPROStoL [Cytotec] 25 mcg VAG Q4H PRN 08/30/20 06:00 Ampicillin 1 gm Sodium Chloride 0.9% [Normal Saline] 50 ml IV Q4H 08/30/20 Breakfast Regular Diet [DIET] 08/30/20 14:50 Patient Status [ADT] Routine May Shower [RC] ASDIRECTED Up ad [place] [RC] ASDIRECTED Vital Signs [RC] PER UNIT ROUTINE Acetaminophen [Tylenol Extra Strength] 1,000 mg PO Q4H PRN Acetaminophen [Tylenol Extra Strength] 500 mg PO Q4H PRN Benzocaine/Menthol [Dermoplast Pain Relief 20%-0.5% Ayr] 78 gm TOP ASDIRECTED PRN Docusate Sodium [Colace] 100 mg PO Q12H PRN Ibuprofen [Motrin] 400 mg PO Q4H PRN Ibuprofen [Motrin] 800 mg PO Q6H PRN Lanolin [Lansinoh HPA] See Dose Instructions TOP ASDIRECTED PRN bisacodyL [Dulcolax] 10 mg RECTAL ONETIME PRN witch Miguel Ángel [Tucks] 1 pad TOP ASDIRECTED PRN Assess Lochia [WOMSER] Per Unit Routine Assess Uterine Involution [WOMSER] Per Unit Routine Peripheral IV Discontinue [OM.PC] Routine 08/31/20 05:11 HEMOGLOBIN/HEMATOCRIT,HH [HEME] Timed - Plan Plan:: 29yo G4 now P3013 @ 39w 5d GA s/p after uncomplicated elective IOL. course complicated by Rh negative and GBS pos, appropriately treated during labor (s/p 4 doses of antibiotics). Routine care Rhogam evaluation sent
[2020-08-30] MEDS: Acetaminophen 500 MG Tab PO PRN (20:21)
[2020-08-30] MEDS: Docusate Sodium 100 MG Cap PO PRN (20:22)
[2020-08-31] MEDS: Ibuprofen 800 MG Tab PO PRN ×3 (00:50→16:30)
[2020-08-31] MEDS: Acetaminophen 500 MG Tab PO PRN (06:43)
[2020-08-31] MEDS: Docusate Sodium 100 MG Cap PO PRN (09:35)
--- NOTE | 2020-08-31 13:42 | PCM.DCSUM1 ---
Discharge Summary - Hospital Course Free Text/Narrative:: 29yo G4 now [id number] s/p @ 39w 5d GA after uncomplicated elective IOL. course complicated by Rh negative and GBS pos, appropriately treated during labor (s/p 4 doses of antibiotics). Diagnosis: Stroke: No - Discharge Data Discharge Date: 08/31/20 Discharge Disposition: Home, Self-Care 01 Condition: Good - Referral to Home Health Primary Care Physician: PCP None - Discharge Diagnosis/Problem(s) (1) Term SNOMED Code(s): 99440371 ICD Code: Z34.90 - ENCNTR FOR SUPRVSN OF NORMAL , UNSP, UNSP TRIMESTER Status: Acute Priority: High Current Visit: Yes (2) Encounter for induction of labor SNOMED Code(s): 677532034 ICD Code: Z34.90 - ENCNTR FOR SUPRVSN OF NORMAL , UNSP, UNSP TRIMESTER Status: Acute Current Visit: Yes - Discharge Plan *PRESCRIPTION DRUG MONITORING PROGRAM REVIEWED*: Not Applicable *COPY OF PRESCRIPTION DRUG MONITORING REPORT IN PATIENT LISSA: Not Applicable Home Medications: Home Meds . [No Known Home Meds] 08/26/19 [History] - Discharge Summary/Plan Comment DC Time >30 min.: Yes - General Info Date of Service: 08/31/20 Admission Dx/Problem (Free Text: Patient Status Order with Admit Dx/Problem 08/30/20 00:15 Patient Status [ADT] Routine Admission Diagnosis/Problem Admission Diagnosis/Problem Subjective Update: S/P uncomplicated normal vaginal delivery after elective IOL. Mom and baby are doing well. Functional Status: Reports: Pain Controlled - Review of Systems General: Reports: No Symptoms HEENT: Reports: No Symptoms Pulmonary: Reports: No Symptoms Cardiovascular: Reports: No Symptoms Gastrointestinal: Reports: No Symptoms Genitourinary: Reports: No Symptoms Musculoskeletal: Reports: No Symptoms, Joint Swelling Skin: Reports: No Symptoms Neurological: Reports: No Symptoms Psychiatric: Reports: No Symptoms - Patient Data Vitals - Most Recent: Last Vital Signs Temp 97.5 F 08/31/20 09:00 Pulse 83 08/31/20 09:00 Resp 16 08/31/20 09:00 BP 110/73 08/31/20 09:00 Pulse Ox 97 08/31/20 09:00 Weight - Most Recent: 94.347 kg I&O - Last 24 hours: Intake & Output 06/26/21 06/27/21 06/27/21 22:59 06:59 14:59 Intake Total 544 2 Balance 544 2 Lab Results - Last 24 hrs: Laboratory Results - last 24 hr 08/30/20 08/31/20 Range/Units 15:54 06:00 Hgb 13.6 (12.0-16.0) g/dL Hct 40.9 (36.0-46.0) % Screen NEGATIVE (NEGATIVE) RhIG Candidate? YES Rhogam Indicated YES, BABY RH POS H Med Orders - Current: Current Medications Acetaminophen (Acetaminophen 500 Mg Tab) 500 mg PO Q4H PRN PRN Reason: Pain (mild 1-3) Acetaminophen (Acetaminophen 500 Mg Tab) 1,000 mg PO Q4H PRN PRN Reason: Pain (mild 1-3) Last Admin: 08/31/20 06:43 Dose: 1,000 mg Documented by: Benzocaine/Menthol (Benzocaine/Menthol 20%-0.5% [place] 78 Gm Cannister) 78 gm TOP ASDIRECTED PRN PRN Reason: Perineal Comfort Measure Last Admin: 08/30/20 17:15 Dose: 1 bottle Documented by: Bisacodyl (Bisacodyl 10 Mg Supp) 10 mg RECTAL ONETIME PRN PRN Reason: Constipation Docusate Sodium (Docusate Sodium 100 Mg Cap) 100 mg PO Q12H PRN PRN Reason: Constipation Last Admin: 08/31/20 09:35 Dose: 100 mg Documented by: Emollient Ointment (Lanolin 100% Cream 7 Gm Tube) 0 gm TOP ASDIRECTED PRN PRN Reason: Sore Nipples Last Admin: 08/30/20 17:16 Dose: 1 applic Documented by: Ibuprofen (Ibuprofen 400 Mg Tab) 400 mg PO Q4H PRN PRN Reason: Pain (mild 1-3) Ibuprofen (Ibuprofen 800 Mg Tab) 800 mg PO Q6H PRN PRN Reason: Pain (mild 1-3) Last Admin: 08/31/20 09:35 Dose: 800 mg Documented by: Sodium Chloride (Sodium Chloride 0.9% 10 Ml Syringe) 10 ml FLUSH ASDIRECTED PRN PRN Reason: Keep Vein Open Sodium Chloride (Sodium Chloride 0.9% 2.5 Ml Syringe) 2.5 ml FLUSH ASDIRECTED PRN PRN Reason: Keep Vein Open Sodium Chloride (Sodium Chloride 0.9% 10 Ml Sdv) 10 ml IV ASDIRECTED PRN PRN Reason: IV Use Witch Karissa (Witch Karissa Medicated Pads 40/Jar) 1 pad TOP ASDIRECTED PRN PRN Reason: comfort care Last Admin: 08/30/20 17:16 Dose: 1 pad Documented by: Discontinued Medications Ampicillin Sodium (Ampicillin 2 Gm Vial) Confirm Administered Dose 2 gm .ROUTE .STK-MED ONE Stop: 08/30/20 01:22 Last Admin: 08/30/20 01:39 Dose: 2 gm Documented by: Bupivacaine HCl (Bupivacaine 0.25% 10 Ml Sdv) Confirm Administered Dose 10 ml .ROUTE .STK-MED ONE Stop: 08/30/20 11:41 Last Admin: 08/30/20 19:26 Dose: Not Given Documented by: Butorphanol Tartrate (Butorphanol 1 Mg/Ml Sdv) 1 mg IVPUSH Q1H PRN PRN Reason: Pain (severe 7-10) Carboprost Tromethamine (Carboprost Tromethamine 250 Mcg/1 Ml Amp) 250 mcg IM ASDIRECTED PRN PRN Reason: Post Hemorrhage Oxytocin/Sodium Chloride (Oxytocin 30 Unit/500 Ml-Ns) 30 unit in 500 mls @ 500 mls/hr IV TITRATE STEFAN Tranexamic Acid 1,000 mg/ (Sodium Chloride) 110 mls @ 660 mls/hr IV ONETIME PRN PRN Reason: Bleeding Ampicillin Sodium 2 gm/ Sodium (Chloride) 100 mls @ 200 mls/hr IV ONETIME ONE Stop: 08/30/20 02:29 Last Admin: 08/30/20 02:13 Dose: Not Given Documented by: Lactated Ringer's (Ringers, Lactated) 1,000 mls @ 150 mls/hr IV ASDIRECTED STEFAN Last Admin: 08/30/20 12:31 Dose: 150 mls/hr Documented by: Oxytocin/Sodium Chloride (Oxytocin 30 Unit/500 Ml-Ns) 30 unit in 500 mls @ 2 mls/hr IV TITRATE STEFAN; Protocol Last Titration: 08/30/20 14:23 Dose: 999 munits/min, 999 mls/hr Documented by: Ampicillin Sodium 1 gm/ Sodium (Chloride) 50 mls @ 100 mls/hr IV Q4H [facility] Last Admin: 08/30/20 13:50 Dose: 100 mls/hr Documented by: Sodium Chloride (Normal Saline) Confirm Administered Dose 100 mls @ as directed .ROUTE .[facility] [employer] [facility] [employer] ONE Stop: 08/30/20 01:22 Last Admin: 08/30/20 01:39 Dose: 200 mls/hr Documented by: Ropivacaine (Naropin 0.2%) Confirm Administered Dose 200 mls @ as directed .ROUTE .[facility] [facility] [employer] ONE Stop: 08/30/20 11:41 Last Admin: 08/30/20 19:26 Dose: Not Given Documented by: Lidocaine HCl (Lidocaine 1% 50 Ml Mdv) 50 ml INJECT ONETIME PRN PRN Reason: Laceration repair Methylergonovine Maleate (Methylergonovine 0.2 Mg/1 Ml Amp) 0.2 mg IM ASDIRECTED PRN PRN Reason: Post Hemorrhage Misoprostol (Misoprostol 200 Mcg Tab) 200 mcg PO ONETIME PRN PRN Reason: Post Hemorrhage Misoprostol (Misoprostol 25 Mcg (1/4 Of 100 Mcg) Tab) 25 mcg VAG ONETIME PRN PRN Reason: Cervical Ripening Misoprostol (Misoprostol 25 Mcg (1/4 Of 100 Mcg) Tab) 25 mcg VAG Q4H PRN PRN Reason: Cervical Ripening Last Admin: 08/30/20 10:20 Dose: 25 mcg Documented by: Misoprostol (Misoprostol 25 Mcg (1/4 Of 100 Mcg) Tab) 25 mcg PO Q4H [facility] Last Admin: 08/30/20 19:25 Dose: Not Given Documented by: Nalbuphine HCl (Nalbuphine 10 Mg/1 Ml Vial) 10 mg IVPUSH Q1H PRN PRN Reason: Pain (severe 7-10) Ondansetron HCl (Ondansetron 4 Mg/2 Ml Sdv) Confirm Administered Dose 4 mg .ROUTE .[facility] [employer] [facility] [employer] ONE Stop: 08/30/20 12:52 Last Admin: 08/30/20 19:26 Dose: Not Given Documented by: Promethazine HCl (Promethazine 25 Mg/Ml Sdv) 25 mg IM Q1H PRN PRN Reason: Pain (moderate 4-6) Sterile Water (Water For Irrigation,Sterile 1,000 Ml Container) 1,000 ml IRR ASDIRECTED PRN PRN Reason: delivery Terbutaline Sulfate (Terbutaline 1 Mg/Ml Sdv) 0.25 mg SUBCUT ASDIRECTED PRN PRN Reason: Tacysystole - Exam General: Reports: Alert, Oriented Lungs: Reports: Normal Respiratory Effort Cardiovascular: Reports: Regular Rate GI/Abdominal Exam: Soft, Non-Tender Extremities: Normal Inspection Skin: Reports: Warm Psy/Mental Status: Reports: Alert, Normal Affect
--- NOTE | 2020-09-03 06:39 | PCM.POSTAN ---
POST ANESTHESIA ASSESSMENT - MENTAL STATUS Mental Status: Alert, Oriented - VITAL SIGNS Vital Signs: Last Vital Signs Temp 97.5 F 08/31/20 09:00 Pulse 83 08/31/20 09:00 Resp 16 08/31/20 09:00 BP 110/73 08/31/20 09:00 Pulse Ox 97 08/31/20 09:00 - RESPIRATORY Respiratory Status: Respiratory Rate WNL, Airway Patent, O2 Saturation Stable - CARDIOVASCULAR CV Status: Pulse Rate WNL, Blood Pressure Stable - GASTROINTESTINAL GI Status: No Symptoms - POST OP HYDRATION Hydration Status: Adequate & Stable
--- NOTE | 2020-09-03 06:40 | PCM48HPAN ---
Post Anesthesia Note - EVALUATION WITHIN 48HRS OF ANESTHETIC Vital Signs in Normal Range: Yes Patient Participated in Evaluation: Yes Respiratory Function Stable: Yes Airway Patent: Yes Cardiovascular Function Stable: Yes Hydration Status Stable: Yes Pain Control Satisfactory: Yes Nausea and Vomiting Control Satisfactory: Yes Mental Status Recovered: Yes Vital Signs: Last Vital Signs Temp 97.5 F 08/31/20 09:00 Pulse 83 08/31/20 09:00 Resp 16 08/31/20 09:00 BP 110/73 08/31/20 09:00 Pulse Ox 97 08/31/20 09:00
== END 2020-08-31 16:30 | disposition home or self-care (01) | DRG 560 ==
LOC: MW.OBCHECK 00:13 → MW.OB 00:13 → MW.OBCHECK 00:15 → MW.OB 00:15 → OBSVTOIN 14:50 → MW.OB 19:53
PROVIDERS: ADMIT Obstetrics & Gynecology Obstetrics; ATTEND Obstetrics & Gynecology Obstetrics
PROC: 10E0XZZ Delivery of Products of Conception, External Approach (ICD-10-PCS; principal; 2020-08-30)
PROC: 3E0P7VZ Introduction of Hormone into Female Reproductive, Via Natural or Artificial Opening (ICD-10-PCS; 2020-08-30)
PROC: 3E0R3BZ Introduction of Anesthetic Agent into Spinal Canal, Percutaneous Approach (ICD-10-PCS; 2020-08-30)
PROC: 3E0234Z Introduction of Serum, Toxoid and Vaccine into Muscle, Percutaneous Approach (ICD-10-PCS; 2020-08-31)
DX: O99.824 Streptococcus B carrier state complicating childbirth (principal); Z3A.39 39 weeks gestation of pregnancy; Z37.0 Single live birth; O77.0 Labor and delivery complicated by meconium in amniotic fluid; Z20.822 Contact with and (suspected) exposure to COVID-19; O26.893 Other specified pregnancy related conditions, third trimester; Z88.6 Allergy status to analgesic agent; Z88.5 Allergy status to narcotic agent; Z67.21 Type B blood, Rh negative
CPT/HCPCS: 36415; 51702; 59025; 59409; 85014; 85018; 85027; 85460; 86592; 86850; 86900; 86901; A9270-GY; J0290; J2590; J2790; J2795; J3490; J7120; U0002